=== PATIENT | male | born 1930 | race Caucasian/White ===

== ENCOUNTER 2016-07-01 10:11 | Emergency (ER) | payer MEDICARE, OTHER ==
[~2016-07-01] VITALS: Ht 177.8 cm; Wt 58.0 kg
[~2016-07-01 10:11] MED LIST: ASPI81TA82 PO; CAPT50TA PO; CARB25TA PO; LEVA500T PO; ZOCO40TA PO
[2016-07-01 10:13] VITALS: BP 141/97; PULSE 80; RESP 16; TEMP 98.2; O2SAT 100
[2016-07-01] MEDS ORDERED: CAPT50TA PO (10:23)
[2016-07-01] MEDS ORDERED: SIMV40TA PO (10:24)
--- NOTE | 2016-07-01 10:24 | PD ---
HPI Chief Complaint: Musculoskeletal Complaint Time Seen by Provider: 10:18 Travel History International Travel<30 days: No Contact w/Intl Traveler<30days: No Traveled to known affect area: No History of Present Illness HPI This is an 85-year-old man with Parkinson's and poor gait chronically. His says he uses a walker the most part but he was shopping at [employer] with only a cane and he fell. He hit the right side of his head on the ground. No loss of consciousness. He is not having any neck pain. He has some skin tears to right arm but no arm pain. Symptoms severity is moderate. Duration 30 minutes. No alleviating factors. He did not have any presyncopal symptoms prior to the fall. PFSH Past Medical History Hx Anticoagulant Therapy: Yes Heart Rhythm Problems: No Cancer: No Cardiovascular Problems: Yes (VALVE REPLACEMENT) High Cholesterol: Yes Chest Pain: No Congestive Heart Failure: No Endocrine: No Genitourinary: No Hypertension: Yes Immune Disorder: No Musculoskeletal: No Neurologic: No Parkinson's Disease: Yes Psychiatric: No Reproductive: No Respiratory: No Past Surgical History Abdominal Surgery: No Cardiac Surgery: Yes (VALVE REPLACEMENT (TISSUE)) Ear Surgery: No Endocrine Surgery: No Eye Surgery: No Genitourinary Surgery: No Gynecologic Surgery: No Oral Surgery: No Thoracic Surgery: No Social History Alcohol Use: No Tobacco Use: No Substance Use: No Allergies-Medications (Allergen,Severity, Reaction): Coded Allergies: No Known Allergies (Unverified , 07/01/16) Reported Meds & Prescriptions Reported Meds & Active Scripts Active Reported Aspirin 81 (Aspirin) 81 Mg Tabdr 81 Mg PO DAILY Carbidopa-Levodopa 25-100 Mg Tab 1 Tab PO Q8HR Simvastatin 40 Mg Tab 40 Mg PO HS Captopril 50 Mg Tab 50 Mg PO TIDAC Take 1 hour before meals. Review of Systems General / Constitutional: No: Fever Eyes: No: Visual changes HENT: Positive: Headaches Cardiovascular: No: Chest Pain or Discomfort Respiratory: No: Shortness of Breath Gastrointestinal: No: Abdominal Pain Genitourinary: No: Dysuria Musculoskeletal: No: Pain Skin: No Rash Neurologic: Positive: Ataxia, Headache, No: Weakness Psychiatric: No: Depression Endocrine: No: Polydipsia Hematologic/Lymphatic: No: Easy Bruising Physical Exam Narrative GENERAL: Well-nourished, well-developed patient in no apparent distress. SKIN: Focused skin assessment reveals no rash and nodules. Skin is Warm and dry. HEAD: Has a ecchymotic swollen area to the right rastafarian. There is a small abrasion without laceration. Normocephalic. EYES: Pupils equal and round. No scleral icterus. No injection or drainage. ENT: No nasal bleeding or discharge. Mucous membranes pink and moist. NECK: Trachea midline. No JVD. No midline tenderness CARDIOVASCULAR: Regular rate and rhythm. No murmur appreciated. RESPIRATORY: No accessory muscle use. Clear to auscultation. Breath sounds equal bilaterally. GASTROINTESTINAL: Abdomen soft, non-tender, nondistended. Hepatic and splenic margins not palpable. MUSCULOSKELETAL: No obvious deformities. No clubbing. No cyanosis. No edema. He has minor skin tears to the right hand and right elbow. No bony tenderness in these regions. NEUROLOGICAL: Awake and alert. No obvious cranial nerve deficits. Motor grossly within normal limits. Normal speech. PSYCHIATRIC: Appropriate mood and affect; insight and judgment reduced. Data Data Last Documented VS Vital Signs Date Time Temp Pulse Resp B/P Pulse Ox O2 Delivery O2 Flow Rate FiO2 07/01/16 10:18 88 16 07/01/16 10:13 98.2 141/[address] Brain W/O Iv Contrast(Rout) (07/01/16 ) Wound Care (07/01/16 10:19) MDM Medical Decision Making Medical Screen Exam Complete: Yes Emergency Medical Condition: Yes Medical Record Reviewed: Yes Differential Diagnosis Intracranial hemorrhage, skull fracture, concussion Narrative Course I have reviewed the patient's electronic medical record. Patient was here August 2015 with esophageal foreign body Patient is at neurologic baseline. He has some Parkinson's dementia and ataxia but no acute deficit Brain CT shows some scalp swelling and atrophy but no intracranial injury Wound care was done to clean and dress his skin tears/abrasions. These include right rastafarian and right hand and right elbow. Case reviewed in detail with his at bedside. Recommend walker all the time. He fell when using the cane. Diagnosis Primary Impression: Head injury due to trauma Qualified Code: S09.90XA - Head injury due to trauma, initial encounter Additional Impressions: Fall Qualified Code: W19.XXXA - Fall, initial encounter Parkinson disease Additional Instructions: The patient was advised to follow up with their physician and return if they worsen. Apply ice to right rastafarian Use walker at all times Med/Other Pt SpecificInfo: Other Disposition: 01 DISCHARGE HOME Condition: Stable Jimenez Gannon MD Jul 01, 2016 10:24
[2016-07-01] MEDS ORDERED: CARB25TA9 PO (10:25)
[2016-07-01] MEDS ORDERED: ASPI-110 PO (10:26)
--- NOTE | 2016-07-01 11:04 | RADHPO ---
EXAM DATE/TIME: 07/01/2016 10:34 [facility] COMPARISON: No previous studies available for comparison. INDICATIONS : Trauma. Fall. Laceration. RADIATION DOSE: 67.38 CTDIvol (mGy) MEDICAL HISTORY : Cardiovascular disease. SURGICAL HISTORY : CABG ENCOUNTER: Initial ACUITY: 1 day PAIN SCALE: 2/10 LOCATION: cranial TECHNIQUE: Multiple contiguous axial images were obtained of the head. Using automated exposure control and adj ustment of the mA and/or kV according to patient size, radiation dose was kept as low as reasonably a chievable to obtain optimal diagnostic quality images. FINDINGS: There is mild diffuse atrophy and minimal periventricular white matter disease. No signs of acute inf arct, hemorrhage, or mass. Right frontal scalp soft tissue swelling. No fractures. CONCLUSION: Right frontal scalp soft tissue swelling, atrophy. Iam Mitchell MD on July 01, 2016 at 11:02 Board Certified Radiologist. This report was verified electronically.
== END 2016-07-01 11:27 | disposition home or self-care (01) ==
LOC: PHED 10:11
DX: S00.83XA Contusion of other part of head, initial encounter (principal); E78.00 Pure hypercholesterolemia, unspecified; I10 Essential (primary) hypertension; G20 Parkinson's disease; Z95.2 Presence of prosthetic heart valve
CPT/HCPCS: 70450

== ENCOUNTER 2016-09-21 10:25 | Emergency (ER) | payer OTHER ==
[~2016-09-21] VITALS: Ht 182.9 cm; Wt 70.0 kg
[~2016-09-21 10:25] MED LIST changes: +ASPI-110 PO; -ASPI81TA82 PO; -CARB25TA PO; +CARB25TA9 PO; -LEVA500T PO; +SIMV40TA PO; -ZOCO40TA PO
[2016-09-21 10:49] VITALS: BP 157/86; PULSE 81; RESP 16; TEMP 98.4; O2SAT 99
[2016-09-21] MEDS ORDERED: FURO40TA PO (11:12)
--- NOTE | 2016-09-21 11:30 | PD ---
HPI . Dementia with behavioral disturbance Chief Complaint: Psychiatric Symptoms Time Seen by Provider: 10:37 Travel History International Travel<30 days: No Contact w/Intl Traveler<30days: No Traveled to known affect area: No History of Present Illness HPI This patient is brought to us under the Tsai Act. He has dementia. He has reportedly become aggressive towards his and has tried to walk out of the house without knowing where he is going. The history is available from patient. He has no complaints. PFSH Past Medical History Medical History: Unable to Obtain Hx Anticoagulant Therapy: Yes Heart Rhythm Problems: No Cancer: No Cardiovascular Problems: Yes (VALVE REPLACEMENT) High Cholesterol: Yes Chest Pain: No Congestive Heart Failure: No Diminished Hearing: Yes (AIDES) Endocrine: No Genitourinary: No Hypertension: Yes Immune Disorder: No Musculoskeletal: No Neurologic: No Parkinson's Disease: Yes Psychiatric: No Reproductive: No Respiratory: No Tetanus Vaccination: Unknown Past Surgical History Surgical History: Unable to Obtain Abdominal Surgery: No Cardiac Surgery: Yes (VALVE REPLACEMENT (TISSUE)) Ear Surgery: No Endocrine Surgery: No Eye Surgery: No Genitourinary Surgery: No Gynecologic Surgery: No Oral Surgery: No Thoracic Surgery: No Other Surgery: Yes Social History Alcohol Use: No Tobacco Use: No Substance Use: No Allergies-Medications (Allergen,Severity, Reaction): Coded Allergies: No Known Allergies (Unverified , 09/21/16) Reported Meds & Prescriptions Reported Meds & Active Scripts Active Reported Furosemide 40 Mg Tab 40 Mg PO DAILY Aspirin 81 (Aspirin) 81 Mg Tabdr 81 Mg PO DAILY Carbidopa-Levodopa 25-100 Mg Tab 1 Tab PO Q8HR Simvastatin 40 Mg Tab 40 Mg PO HS Captopril 50 Mg Tab 50 Mg PO TIDAC Take 1 hour before meals. Review of Systems ROS Limitations: Poor Historian Physical Exam Narrative GENERAL: Pleasantly appearing older man who is in no acute distress. He has no idea why he is here or where he is. SKIN: Warm and dry. HEAD: Atraumatic. Normocephalic. EYES: Pupils equal and round. Extraocular movements are intact. ENT: No nasal bleeding or discharge. Mucous membranes pink and moist. NECK: Trachea midline. Neck is supple. CARDIOVASCULAR: Regular rate and rhythm. Heart sounds are normal. RESPIRATORY: No accessory muscle use. Lungs are clear with good air movement throughout. GASTROINTESTINAL: Abdomen soft, non-tender, nondistended. MUSCULOSKELETAL: No obvious deformities. No edema. NEUROLOGICAL: Awake and alert. No obvious cranial nerve deficits. Motor grossly within normal limits. Normal speech. PSYCHIATRIC: Demented. Data Data Last Documented VS Vital Signs Date Time Temp Pulse Resp B/P Pulse Ox O2 Delivery O2 Flow Rate FiO2 09/21/16 10:49 98.4 81 16 157/86 99 Orders Complete Blood Count With Diff (09/21/16 10:37) Comprehensive Metabolic Panel (09/21/16 10:37) Psych Screen (09/21/16 10:37) Drug Screen, Random Urine (09/21/16 10:37) Alcohol (Ethanol) (09/21/16 10:37) Labs Laboratory Tests Test 09/21/16 11:25 White Blood Count 6.6 TH/MM3 Red Blood Count 3.58 MIL/MM3 Hemoglobin 11.6 GM/DL Hematocrit 35.0 % Mean Corpuscular Volume 97.8 FL Mean Corpuscular Hemoglobin 32.3 PG Mean Corpuscular Hemoglobin 33.0 % Concent Red Cell Distribution Width 13.7 % Platelet Count 193 TH/MM3 Mean Platelet Volume 9.0 FL Neutrophils (%) (Auto) 76.5 % Lymphocytes (%) (Auto) 17.9 % Monocytes (%) (Auto) 3.9 % Eosinophils (%) (Auto) 0.9 % Basophils (%) (Auto) 0.8 % Neutrophils # (Auto) 5.0 TH/MM3 Lymphocytes # (Auto) 1.2 TH/MM3 Monocytes # (Auto) 0.3 TH/MM3 Eosinophils # (Auto) 0.1 TH/MM3 Basophils # (Auto) 0.1 TH/MM3 CBC Comment DIFF FINAL Differential Comment Sodium Level 138 MEQ/L Potassium Level 4.3 MEQ/L Chloride Level 103 MEQ/L Carbon Dioxide Level 27.9 MEQ/L Anion Gap 7 MEQ/L Blood Urea Nitrogen 34 MG/DL Creatinine 1.79 MG/DL Estimat Glomerular Filtration 36 ML/MIN Rate Random Glucose 100 MG/DL Calcium Level 9.8 MG/DL Total Bilirubin 0.7 MG/DL Aspartate Amino Transf 23 U/L (AST/SGOT) Alanine Aminotransferase 12 U/L (ALT/SGPT) Alkaline Phosphatase 80 U/L Total Protein 8.2 GM/DL Albumin 4.3 GM/DL Urine Opiates Screen NEG Urine Barbiturates Screen NEG Urine Amphetamines Screen NEG Urine Benzodiazepines Screen NEG Urine Cocaine Screen NEG Urine Cannabinoids Screen NEG Ethyl Alcohol Level LESS THAN 3 MG/DL MDM Medical Decision Making Medical Screen Exam Complete: Yes Emergency Medical Condition: Yes Differential Diagnosis My differential diagnosis of aggressive behavior includes but is not limited to personality disorder, psychosis, oppositional defiant disorder, dementia with behavioral disturbance Narrative Course Patient presents to us under the Tsai Act for aggressive behavior and trying to walk out of his house. He has dementia. Medical clearance exam has been initiated. He will be evaluated by psych screening. CBC & BMP Diagram 09/21/16 11:25 Toxicology is negative. This patient is medically clear for psychiatric evaluation. Diagnosis Primary Impression: Dementia with behavioral disturbance Qualified Code: F03.91 - Dementia with behavioral disturbance, unspecified dementia type Condition: Stable Mary Hudson MD Sep 21, 2016 11:30
[2016-09-21 11:52] LABS: AMPHETAMINE, URINE NEG (NEG); BARBITURATES, URINE NEG (NEG); COCAINE, URINE NEG (NEG)
[2016-09-21 11:54] LABS: BASOPHIL # 0.1 TH/MM3 (0-0.2); BASOPHIL % 0.8 % (0.0-2.0); EOSINOPHIL # 0.1 TH/MM3 (0-0.4); EOSINOPHIL % 0.9 % (0.0-4.0); HEMO FLAGS DIFF FINAL; LYMPH % 17.9 % (9.0-44.0); LYMPHOCYTE # 1.2 TH/MM3 (1.0-4.8); MEAN CELL VOLUME 97.8 FL (80.0-100.0); MEAN CORPUSCULAR HEMOGLOBIN 32.3 PG (27.0-34.0); MONO % 3.9 % (0.0-8.0); NEUT % 76.5 % (16.0-70.0); PLATELET COUNT 193 TH/MM3 (150-450); RED BLOOD COUNT 3.58 MIL/MM3 (4.50-5.90); RED CELL DISTRIBUTION WIDTH 13.7 % (11.6-17.2); WHITE BLOOD COUNT 6.6 TH/MM3 (4.0-11.0)
[2016-09-21 11:58] LABS: ANION GAP 7 MEQ/L (5-15); AST (GOT) 23 U/L (15-37); BICARBONATE 27.9 MEQ/L (21.0-32.0); BLOOD UREA NITROGEN 34 MG/DL (7-18); CHLORIDE 103 MEQ/L (98-107); GLOMERULAR FILTRATION RATE 36 ML/MIN (>89); POTASSIUM 4.3 MEQ/L (3.5-5.1); SODIUM (NA) 138 MEQ/L (136-145)
[2016-09-21 11:59] LABS: ALT (GPT) 12 U/L (12-78)
[2016-09-21 12:01] LABS: ALKALINE PHOSPHATASE 80 U/L (45-117); TOTAL BILIRUBIN ADULT 0.7 MG/DL (0.2-1.0)
--- NOTE | 2016-09-21 15:07 | PD ---
History of Present Illness Chief Complaint: Psychiatric Symptoms Time Seen by Provider: 14:30 Travel History International Travel<30 Days: No Contact w/Intl Traveler<30days: No Known affected area: No Legal Status Legal Status: Tsai Act Tsai Act Signed By: Cirilo Dean History of Present Illness: History of Present Illness HPI This patient is a 85 year old male with no previous psychiatric history and a history of Parkinson disease and dementia brought to us under the Tsai Act initiate by REBA. The BA alleges that he was walking out of the home, not knowing his whereabouts and becoming aggressive. The history is available from patient. He has no complaints. The patient is seen in main ed.he is calm and oriented to person, states it's independence day. His speech is muffled. He does make an effort at answering questions. he was able to ascertain 2017 after a few tries. he cannot recall the President's name. he has no idea why he is here in the hospital. He has not become agitated or aggressive while here. he denies current hallucinations. no suicidal ideation. Telephone call to his , Cecelia Rapp to obtain further clinical information at [phone]. He was dx with Parkinson approximately 5 years ago and has had about 3 episodes of becoming agitated, not recognizing her as well as paranoid. These episodes are transient. He believed that there were people in his house trying to hurt him and he left and went to the neighbor's house so that the neighbor could call the police . His neurologist is Dr. Quinn. I have recommended she call and schedule an appointment with the neurologist. I have provided her with information regarding maintaining safety including adding an alarm to outside doors as well as installing bolts. She is also considering hiring someone to help care for him. I have recommended that she begin to look for placement for the future. PFS Past Medical History Medical History: Unable to Obtain Hx Anticoagulant Therapy: Yes Heart Rhythm Problems: No Cancer: No Cardiovascular Problems: Yes (VALVE REPLACEMENT) High Cholesterol: Yes Chest Pain: No Congestive Heart Failure: No Diminished Hearing: Yes (AIDES) Endocrine: No Genitourinary: No Hypertension: Yes Immune Disorder: No Musculoskeletal: No Neurologic: No Parkinson's Disease: Yes Psychiatric: No Reproductive: No Respiratory: No Tetanus Vaccination: Unknown Past Surgical History Surgical History: Unable to Obtain Abdominal Surgery: No Cardiac Surgery: Yes (VALVE REPLACEMENT (TISSUE)) Ear Surgery: No Endocrine Surgery: No Eye Surgery: No Genitourinary Surgery: No Gynecologic Surgery: No Oral Surgery: No Thoracic Surgery: No Other Surgery: Yes Psychiatric History Psychiatric History Hx Psychiatric Treatment: none History of Inpatient Treatment: No Guns or firearms in home: No Social History Yoli provided this information. x 63 years. has 2 children. Retired . worked as a tractor trailer truck driver Hx Alcohol Use: No Hx Tobacco Use: No Hx Substance Use: No Family Psychiatric History unknown Allergies-Medications (Allergen,Severity, Reaction): Coded Allergies: No Known Allergies (Unverified , 09/21/16) Reported Meds & Prescriptions Reported Meds & Active Scripts Active Reported Furosemide 40 Mg Tab 40 Mg PO DAILY Aspirin 81 (Aspirin) 81 Mg Tabdr 81 Mg PO DAILY Carbidopa-Levodopa 25-100 Mg Tab 1 Tab PO Q8HR Simvastatin 40 Mg Tab 40 Mg PO HS Captopril 50 Mg Tab 50 Mg PO TIDAC Take 1 hour before meals. Review of Systems Except as stated in HPI: all other systems reviewed are Neg Eyes: COMPLAINS OF: Vision loss Neurologic: COMPLAINS OF: Abnormal gait Exam Alert: Yes Waterman: Person, Date (partial ) Mood: Calm Affect: Appropriate Speech: Clear Eye Contact: Normal Memory Intact: Comment (Impaired for recent) Hallucinations: Visual (at times sees cats, dogs as well as persons ) Delusions: No Suicidal: Ideation (Negative) Homicidal: Ideation (Negative) Insight/Judgement Poor. Poor MDM Medical Decision Making Assessment/Plan Pending ua which I have requested at this time in order to rule out a UTI. This patient does not meet criteria for BA. He has no previous psychiatric history and is presenting symptomatology associated with Parkinson's dementia. he may be experiencing a UTI. The agrees to pick him up once he is medically cleared. Will lift BA.Cleared from psychiatry for discharge. Orders Complete Blood Count With Diff (09/21/16 10:37) Comprehensive Metabolic Panel (09/21/16 10:37) Psych Screen (09/21/16 10:37) Drug Screen, Random Urine (09/21/16 10:37) Alcohol (Ethanol) (09/21/16 10:37) Urinalysis - C+S If Indicated (09/21/16 14:44) Results Vital Signs Date Time Temp Pulse Resp B/P Pulse Ox O2 Delivery O2 Flow Rate FiO2 09/21/16 10:49 98.4 81 16 157/86 99 Laboratory Tests Test 09/21/16 11:25 White Blood Count 6.6 Red Blood Count 3.58 Hemoglobin 11.6 Hematocrit 35.0 Mean Corpuscular Volume 97.8 Mean Corpuscular Hemoglobin 32.3 Mean Corpuscular Hemoglobin 33.0 Concent Red Cell Distribution Width 13.7 Platelet Count 193 Mean Platelet Volume 9.0 Neutrophils (%) (Auto) 76.5 Lymphocytes (%) (Auto) 17.9 Monocytes (%) (Auto) 3.9 Eosinophils (%) (Auto) 0.9 Basophils (%) (Auto) 0.8 Neutrophils # (Auto) 5.0 Lymphocytes # (Auto) 1.2 Monocytes # (Auto) 0.3 Eosinophils # (Auto) 0.1 Basophils # (Auto) 0.1 CBC Comment DIFF FINAL Differential Comment Sodium Level 138 Potassium Level 4.3 Chloride Level 103 Carbon Dioxide Level 27.9 Anion Gap 7 Blood Urea Nitrogen 34 Creatinine 1.79 Estimat Glomerular Filtration 36 Rate Random Glucose 100 Calcium Level 9.8 Total Bilirubin 0.7 Aspartate Amino Transf 23 (AST/SGOT) Alanine Aminotransferase 12 (ALT/SGPT) Alkaline Phosphatase 80 Total Protein 8.2 Albumin 4.3 Urine Opiates Screen NEG Urine Barbiturates Screen NEG Urine Amphetamines Screen NEG Urine Benzodiazepines Screen NEG Urine Cocaine Screen NEG Urine Cannabinoids Screen NEG Ethyl Alcohol Level LESS THAN 3 Diagnosis Primary Impression: Dementia with behavioral disturbance Psychiatrically Cleared: Yes Disposition: 01 DISCHARGE HOME Condition: Stable Problem Qualifiers Primary Impression: Dementia with behavioral disturbance Qualified Code: 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
[2016-09-21 16:12] LABS: BLOOD, URINE NEG (NEG); COMMENT (UR) CULT NOT INDICATED; CULTURE IF INDICATED CULT NOT INDICATED; GLUCOSE,URINE NEG (NEG); HYALINE CAST, URINE 3 /lpf (RARE); KETONE, URINE NEG (NEG); MUCUS URINE FEW /lpf (OCC); NITRITE,URINE NEG (NEG); URINE COLOR YELLOW (YELLW/STRAW)
[2016-09-21 16:43] VITALS: BP 142/78
== END 2016-09-21 17:07 | disposition home or self-care (01) ==
LOC: NEPD 10:25
DX: F03.91 Unspecified dementia, unspecified severity, with behavioral disturbance (principal); I10 Essential (primary) hypertension; G20 Parkinson's disease; H91.90 Unspecified hearing loss, unspecified ear; E78.00 Pure hypercholesterolemia, unspecified; Z95.2 Presence of prosthetic heart valve
CPT/HCPCS: 80053; 80307; 81001; 85025; 99284

== ENCOUNTER 2016-12-28 13:28 | Emergency (ER) | payer OTHER ==
[~2016-12-28 13:28] MED LIST changes: +FURO40TA PO
[2016-12-28 13:30] VITALS: BP 181/98; PULSE 78; RESP 15; TEMP 98.1; O2SAT 98
[2016-12-28] MEDS ORDERED: SODIUM CHLORIDE 0.9% FLUSH 5 ML FLUSH IV FLUSH PRN (13:45)
[2016-12-28 13:58] LABS: AUTOMATED NEUTROPHIL # 7.3 TH/MM3 (1.8-7.7); BASOPHIL # 0.1 TH/MM3 (0-0.2); BASOPHIL % 0.7 % (0.0-2.0); EOSINOPHIL # 0.1 TH/MM3 (0-0.4); EOSINOPHIL % 1.2 % (0.0-4.0); HEMATOCRIT 35.3 % (39.0-51.0); HEMO FLAGS DIFF FINAL; LYMPH % 15.1 % (9.0-44.0); LYMPHOCYTE # 1.4 TH/MM3 (1.0-4.8); MEAN CELL VOLUME 94.5 FL (80.0-100.0); MEAN CORPUSCULAR HEMOGLOBIN 31.6 PG (27.0-34.0); MEAN CORPUSCULAR HGB CONC 33.5 % (32.0-36.0); MONO % 4.7 % (0.0-8.0); NEUT % 78.3 % (16.0-70.0); PLATELET COUNT 225 TH/MM3 (150-450); RED BLOOD COUNT 3.73 MIL/MM3 (4.50-5.90); RED CELL DISTRIBUTION WIDTH 13.9 % (11.6-17.2); WHITE BLOOD COUNT 9.3 TH/MM3 (4.0-11.0)
[2016-12-28 14:07] LABS: CHLORIDE 103 MEQ/L (98-107); POTASSIUM 4.3 MEQ/L (3.5-5.1); SODIUM (NA) 138 MEQ/L (136-145)
[2016-12-28 14:10] LABS: ANION GAP 7 MEQ/L (5-15); BICARBONATE 28.5 MEQ/L (21.0-32.0); BLOOD UREA NITROGEN 30 MG/DL (7-18)
[2016-12-28 14:13] LABS: ALT (GPT) 20 U/L (12-78); AST (GOT) 67 U/L (15-37)
[2016-12-28 14:14] LABS: GLOMERULAR FILTRATION RATE 52 ML/MIN (>89)
[2016-12-28 14:15] LABS: TOTAL BILIRUBIN ADULT 0.9 MG/DL (0.2-1.0)
[2016-12-28 14:16] LABS: ALKALINE PHOSPHATASE 88 U/L (45-117)
--- NOTE | 2016-12-28 14:29 | RADRPT ---
EXAM DATE/TIME: 12/28/2016 14:13 [facility] COMPARISON: CT BRAIN W/O CONTRAST, July 01, 2016, 10:34. INDICATIONS : Altered mental status. RADIATION DOSE: 65.88 CTDIvol (mGy) MEDICAL HISTORY : Cardiovascular disease. Parkinsons. Hypertension. SURGICAL HISTORY : Valve replacement. ENCOUNTER: Initial ACUITY: 1 day PAIN SCALE: 0/10 LOCATION: cranial TECHNIQUE: Multiple contiguous axial images were obtained of the head. Using automated exposure control and adj ustment of the mA and/or kV according to patient size, radiation dose was kept as low as reasonably a chievable to obtain optimal diagnostic quality images. DICOM format image data is available electro nically for review and comparison. FINDINGS: CEREBRUM: Atrophy. The ventricles are normal for age. No evidence of midline shift, mass lesion, hemorrhage or acute infarction. No extra-axial fluid collections are seen. POSTERIOR FOSSA: The cerebellum and brainstem are intact. The 4th ventricle is midline. The cerebellopontine angle i s unremarkable. EXTRACRANIAL: The visualized portion of the orbits is intact. SKULL: The calvaria is intact. No evidence of skull fracture. CONCLUSION: No acute disease. Lul Freeman Jr., MD on December 28, 2016 at 14:26 Board Certified Radiologist. This report was verified electronically.
[2016-12-28 14:40] VITALS: BP 154/76; PULSE 76; RESP 18; O2SAT 100
[2016-12-28] MEDS ORDERED: SODIUM CHLOR 0.9% 1000 ML INJ 1,000 ML IV ONE ×2 (14:45→15:45)
--- NOTE | 2016-12-28 14:53 | PD ---
HPI Chief Complaint: General Weakness Time Seen by Provider: 13:34 Travel History International Travel<30 days: No Contact w/Intl Traveler<30days: No Traveled to known affect area: No History of Present Illness HPI This is an 86-year-old male who presents to the emergency department having been brought in by [facility] because his called and said he been on the floor for 3 days. She says he didn't fall but she's having too much trouble taking care of him and she couldn't get him off of the floor. Patient is unable to provide any history. He was supposed to have a home health care evaluation to try to get him transitioned into an assisted living. PFSH Past Medical History Hx Anticoagulant Therapy: Yes Heart Rhythm Problems: No Cancer: No Cardiovascular Problems: Yes (VALVE REPLACEMENT) High Cholesterol: Yes Chest Pain: No Congestive Heart Failure: No Dementia: Yes Diminished Hearing: Yes (AIDES) Endocrine: No Genitourinary: No Hypertension: Yes Immune Disorder: No Musculoskeletal: No Neurologic: No Parkinson's Disease: Yes Psychiatric: No Reproductive: No Respiratory: No Past Surgical History Abdominal Surgery: No Cardiac Surgery: Yes (VALVE REPLACEMENT (TISSUE)) Ear Surgery: No Endocrine Surgery: No Eye Surgery: No Genitourinary Surgery: No Gynecologic Surgery: No Oral Surgery: No Thoracic Surgery: No Other Surgery: Yes Social History Alcohol Use: No Tobacco Use: No Substance Use: No Allergies-Medications (Allergen,Severity, Reaction): Coded Allergies: No Known Allergies (Unverified , 09/21/16) Reported Meds & Prescriptions Reported Meds & Active Scripts Active Reported Furosemide 40 Mg Tab 40 Mg PO DAILY Aspirin 81 (Aspirin) 81 Mg Tabdr 81 Mg PO DAILY Carbidopa-Levodopa 25-100 Mg Tab 1 Tab PO Q8HR Simvastatin 40 Mg Tab 40 Mg PO HS Captopril 50 Mg Tab 50 Mg PO TIDAC Take 1 hour before meals. Review of Systems ROS Limitations: Poor Historian Physical Exam Narrative GENERAL: Disheveled of elderly male in no acute distress. SKIN: 7 x 6 cm area of skin breakdown stage II on the left hip, 3 x 5 cm area of skin breakdown stage II on the sacrum HEAD: Atraumatic. Normocephalic. EYES: Pupils equal and round. No injection or drainage. ENT: Moist mucous membranes NECK: Trachea midline. CARDIOVASCULAR: Regular rate and rhythm. No murmur appreciated. RESPIRATORY: Clear to auscultation. Breath sounds equal bilaterally. GASTROINTESTINAL: Abdomen soft, non-tender, nondistended. MUSCULOSKELETAL: No obvious deformities. NEUROLOGICAL: Confused, says his name but doesn't answer other questions. No obvious cranial nerve deficits. Moving all extremities. PSYCHIATRIC: Poor insight and judgment. Data Data Last Documented VS Vital Signs Date Time Temp Pulse Resp B/P (MAP) Pulse Ox O2 Delivery O2 Flow Rate FiO2 12/28/16 14:40 76 18 154/76 (102) 100 Room Air 12/28/16 13:30 98.1 Orders Orders Complete Blood Count With Diff (12/28/16 13:39) Comprehensive Metabolic Panel (12/28/16 13:39) Urinalysis - C+S If Indicated (12/28/16 13:39) Ct Brain W/O Iv Contrast(Rout) (12/28/16 13:39) Blood Glucose (12/28/16 13:39) Ecg Monitoring (12/28/16 13:39) Iv Access Insert/Monitor (12/28/16 13:39) Oximetry (12/28/16 13:39) Sodium Chloride 0.9% Flush (Ns Flush) (12/28/16 13:45) Cath For Specimen (12/28/16 13:39) Sodium Chlor 0.9% 1000 Ml Inj (Ns 1000 M (12/28/16 14:45) Creatine Kinase (Cpk) (12/28/16 13:49) CKMB (12/28/16 13:49) CKMB% (12/28/16 13:49) Sodium Chlor 0.9% 1000 Ml Inj (Ns 1000 M (12/28/16 15:45) Labs Laboratory Tests Test 12/28/16 13:49 White Blood Count 9.3 TH/MM3 Red Blood Count 3.73 MIL/MM3 Hemoglobin 11.8 GM/DL Hematocrit 35.3 % Mean Corpuscular Volume 94.5 FL Mean Corpuscular Hemoglobin 31.6 PG Mean Corpuscular Hemoglobin Concent 33.5 % Red Cell Distribution Width 13.9 % Platelet Count 225 TH/MM3 Mean Platelet Volume 7.5 FL Neutrophils (%) (Auto) 78.3 % Lymphocytes (%) (Auto) 15.1 % Monocytes (%) (Auto) 4.7 % Eosinophils (%) (Auto) 1.2 % Basophils (%) (Auto) 0.7 % Neutrophils # (Auto) 7.3 TH/MM3 Lymphocytes # (Auto) 1.4 TH/MM3 Monocytes # (Auto) 0.4 TH/MM3 Eosinophils # (Auto) 0.1 TH/MM3 Basophils # (Auto) 0.1 TH/MM3 CBC Comment DIFF FINAL Differential Comment Blood Urea Nitrogen 30 MG/DL Creatinine 1.30 MG/DL Random Glucose 97 MG/DL Total Protein 7.7 GM/DL Albumin 3.8 GM/DL Calcium Level 9.8 MG/DL Alkaline Phosphatase 88 U/L Aspartate Amino Transf (AST/SGOT) 67 U/L Alanine Aminotransferase (ALT/SGPT) 20 U/L Total Bilirubin 0.9 MG/DL Sodium Level 138 MEQ/L Potassium Level 4.3 MEQ/L Chloride Level 103 MEQ/L Carbon Dioxide Level 28.5 MEQ/L Anion Gap 7 MEQ/L Estimat Glomerular Filtration Rate 52 ML/MIN Total Creatine Kinase 1215 U/L Creatine Kinase MB 18.7 NG/ML Creatine Kinase MB % 1.5 % MDM Medical Decision Making Medical Screen Exam Complete: Yes Emergency Medical Condition: Yes Interpretation(s) afebrile, no tachycardia, hypertensive anemia ck 1215 Differential Diagnosis Subdural hematoma, rhabdomyolysis, dehydration, infection Narrative Course This is an 86-year-old male who has a history of dementia who presents to the emergency department having reportedly been on the ground. Case management had a long conversation with the patient's . He evidently was having difficulty getting up this morning when the home health care agency arrived so they advised that he be brought to the emergency department. He has not been on the floor for 3 days as [facility] conveyed. His was hoping that he could be enrolled in hospice. I think he is borderline criteria based on his advanced dementia and the presence of some sacral decubitus ulcers. The caser up spoke to Dr. Hernandez's office who agreed to arrange for hospice and to ensure the family has home health care. We offered transition to a halfway to the but the really wants the patient at home. Labs and CT were obtained which were all reassuring. Pt. was given 2 L of IVF in the setting of CK of 1200. Pt. will be transferred home with [facility]. Diagnosis Primary Impression: Advanced dementia Patient Instructions: General Instructions Med/Other Pt SpecificInfo: No Change to Meds Disposition: 01 DISCHARGE HOME Condition: Stable Terese Rivas MD Dec 28, 2016 14:53
[2016-12-28 15:06] LABS: CREATINE KINASE 1215 U/L (39-308)
[2016-12-28 15:21] LABS: CKMB 18.7 NG/ML (0.5-3.6)
[2016-12-28 15:59] VITALS: O2SAT 98
[2016-12-28 16:21] LABS: BLOOD, URINE TRACE (NEG); GLUCOSE,URINE NEG (NEG); KETONE, URINE TRACE mg/dL (NEG); NITRITE,URINE NEG (NEG)
[2016-12-28 16:26] LABS: BACTERIA, URINE FEW /hpf; COMMENT (UR) CATH-CULTURE IND; CULTURE IF INDICATED CATH CULTURE IND; RBC, URINE 0-3 /hpf (0-3); SQUAMOUS EPITHELIAL CELL URINE 0-5 /hpf (0-5); URINE COLOR YELLOW (YELLW/STRAW)
[2016-12-28 16:59] VITALS: BP 111/82; PULSE 82; RESP 16; O2SAT 98
== END 2016-12-28 17:45 | disposition home or self-care (01) ==
LOC: PHED 13:28
DX: F03.90 Unspecified dementia, unspecified severity, without behavioral disturbance, psychotic disturbance, mood disturbance, and anxiety (principal); I10 Essential (primary) hypertension; E78.00 Pure hypercholesterolemia, unspecified; Z79.82 Long term (current) use of aspirin
CPT/HCPCS: 70450; 80053; 81001; 82550; 82552; 85025; 87086; 99284; J7030; P9612